=== PATIENT | male | born 1995 | race Caucasian/White ===

== ENCOUNTER 2020-03-09 22:24 | Emergency (ER) | payer MEDICAID, OTHER ==
[2020-03-09] MEDS ORDERED: Dexamethasone 4 MG TAB ONE (23:36)
[2020-03-09] MEDS ORDERED: diphenhydrAMINE 50 MG CAP ONE (23:36)
--- NOTE | 2020-03-10 10:36 | ULT ---
PRELIMINARY REPORT/[facility]/AFTER HOURS PROCEDURE SCROTAL ULTRASOUND: CLINICAL HISTORY: Bilateral scrotal swelling. No pain. TECHNIQUE: Real-time ultrasound of the scrotum with color Doppler and image documentation. COMPARISON: None provided. FINDINGS RIGHT TESTICLE: No mass. Normal Doppler flow. Measures 5.0 x 2.3 x 2.5 cm. LEFT TESTICLE: No mass. Normal Doppler flow. Measures 4.6 x 2.9 x 2.9 cm. EPIDIDYMIDES: Unremarkable. SCROTUM: Mild bilateral hydroceles are noted. IMPRESSION: Mild bilateral hydroceles with no evidence for torsion. ELECTRONICALLY SIGNED BY: Oj Whalen MD Mar 10, 2020 12:37:49 AM CDT This report is intended for review by the ordering physician only, in accordance of law. If you recei ve this report in error, please call [facility] at [phone]. FINAL REPORT EMERGENT AFTER HOURS TESTICULAR ULTRASOUND: TECHNIQUE: Multiplanar anderson-scale and color Doppler images were obtained in a testicular/scrotal ultrasound. Spe ctral analysis of the Doppler wave-forms of the testicles was performed. FINDINGS/IMPRESSION: I agree with the findings and impression given in the preliminary report per the [facility] braydon bird. Mild bilateral hydroceles. CODE QA POS: [place]
== END 2020-03-10 01:11 | disposition home or self-care (01) ==
LOC: ERS 22:24
DX: L73.9 Follicular disorder, unspecified (principal); N50.89 Other specified disorders of the male genital organs
CPT/HCPCS: 76870; J8540; Q0163

== ENCOUNTER 2021-06-09 08:40 | Emergency (ER) | payer OTHER | END 2021-06-09 10:10 | disposition home or self-care (01) | LOC: ERS 08:40 | DX: S80.812A Abrasion, left lower leg, initial encounter (principal); S80.811A Abrasion, right lower leg, initial encounter; F17.290 Nicotine dependence, other tobacco product, uncomplicated; W22.8XXA Striking against or struck by other objects, initial encounter ==

== ENCOUNTER 2023-07-02 16:21 | Outpatient (CLI) | payer BC, OTHER | END 2023-07-02 16:22 | disposition home or self-care (01) | LOC: BICRAD 16:21 | PROVIDERS: ATTEND Family Medicine | DX: M25.512 Pain in left shoulder (principal) ==